=== PATIENT | male | born 1985 | race Caucasian/White ===

== ENCOUNTER 2018-06-03 09:26 | Emergency (ER) | payer OTHER ==
[2018-06-03 10:07] VITALS: BP 123/70
--- NOTE | 2018-06-03 10:12 | UC ---
UC General HPI - HPI Summary HPI Summary: cough with chest congestion x 1 month. + chills. no cp or sob. smokes 1ppd. had a sore throat that has resolved. - History of Current Complaint Chief Complaint: UCRespiratory Stated Complaint: CHILLS,CONGESTION Time Seen by Provider: 06/03/18 10:06 Hx Obtained From: Patient Onset/Duration: Gradual Onset Timing: Constant Pain Intensity: 0 Aggravating: nothing Alleviating: nothing Associated Signs & Symptoms: Positive: Cough, Fever - ?. Negative: Chest Pain, Hematemesis, SOB, Wheezing - Allergy/Home Medications Allergies/Adverse Reactions: Allergies Allergy/AdvReac Type Severity Reaction Status Date / Time bee sting Allergy Swelling Uncoded 06/03/18 10:07 PMH/Surg Hx/FS Hx/Imm Hx Previously Healthy: Yes - Surgical History Surgical History: Yes Surgery Procedure, Year, and Place: right inquinal hernia at age 18 yr - Family History Known Family History: Positive: Other - asthma - Social History Lives: With Family Alcohol Use: Occasionally Substance Use Type: Excessive Caffeine Smoking Status (MU): Heavy Every Day Tobacco Smoker - Immunization History Vaccination Up to Date: Yes Review of Systems Constitutional: Negative Skin: Negative Eyes: Negative ENT: Negative Respiratory: Cough Cardiovascular: Negative Gastrointestinal: Negative Genitourinary: Negative Motor: Negative Neurovascular: Negative Musculoskeletal: Negative Neurological: Negative Psychological: Negative Is Patient Immunocompromised?: No All Other Systems Reviewed And Are Negative: Yes Physical Exam Triage Information Reviewed: Yes Appearance: Well-Appearing Vital Signs: Initial Vital Signs Temp 98.3 F 06/03/18 09:57 Pulse 55 06/03/18 09:57 Resp 20 06/03/18 09:57 BP 123/70 06/03/18 09:57 Pulse Ox 100 06/03/18 09:57 Vital Signs Reviewed: Yes Eyes: Positive: Conjunctiva Clear ENT: Positive: Pharynx normal, TMs normal. Negative: Nasal congestion, Nasal drainage Neck: Positive: Supple, Nontender, No Lymphadenopathy Respiratory: Positive: Lungs clear, No respiratory distress, Decreased breath sounds Cardiovascular: Positive: RRR, No Murmur Abdomen Description: Positive: Nontender, No Organomegaly, Soft Bowel Sounds: Positive: Present Musculoskeletal: Positive: ROM Intact Neurological: Positive: Alert Psychological: Positive: Age Appropriate Behavior Skin Exam: Normal Diagnostics - Laboratory Diagnostic Studies Completed/Ordered: CXR=NO ACTIVE CARDIOPULMONARY DISEASE. Course/Dx - Course Course Of Treatment: non toxic, cxr=unremarkable. non resolving cough x 1 month and smokes 1ppd thus infection and RAD both of concern thus will tx for presumptive bacterial infection and RAD. need for close f/u advised. - Differential Dx - Multi-Symptom Provider Diagnoses: Cough. Possibe reactive airways disease. Discharge - Sign-Out/Discharge Documenting (check all that apply): Patient Departure All imaging exams completed and their final reports reviewed: Yes - Discharge Plan Condition: Stable Disposition: HOME Prescriptions: Albuterol HFA INHALER* [Ventolin HFA Inhaler*] 2 puff INH Q6H #1 mdi DOXYcycline CAP(*) [DOXYcycline 100MG CAP(*)] 100 mg PO BID #14 cap Patient Education Materials: Acute Cough (ED), Bronchospasm (ED) Referrals: Bren Feliciano MD [Primary Care Provider] - 7 Days - Billing Disposition and Condition Condition: STABLE Disposition: Home
--- NOTE | 2018-06-03 10:25 | RAD ---
HISTORY: cough x 1 month COMPARISONS: None VIEWS: 4: Frontal dual-energy and lateral views of the chest. FINDINGS: CARDIOMEDIASTINAL SILHOUETTE: The cardiomediastinal silhouette is normal. OLIVA: The oliva are normal. PLEURA: The costophrenic angles are sharp. No pleural abnormalities are noted. LUNG PARENCHYMA: The lungs are clear. ABDOMEN: The upper abdomen is clear. There is no subphrenic gas. BONES AND SOFT TISSUES: No bone or soft tissue abnormalities are noted. OTHER: None. IMPRESSION: NO ACTIVE CARDIOPULMONARY DISEASE.
== END 2018-06-03 10:50 | disposition home or self-care (01) ==
LOC: UCCORT 09:26
DX: R05 Cough (principal); F17.210 Nicotine dependence, cigarettes, uncomplicated
CPT/HCPCS: 71046; 99202; G0463

== ENCOUNTER 2019-10-19 09:53 | Emergency (ER) | payer OTHER ==
[2019-10-19 10:15] VITALS: BP 108/63
--- NOTE | 2019-10-19 13:43 | UC ---
Abdominal Pain Male HPI - HPI Summary HPI Summary: mid abdominal pain x 4 days pain is dull, 4 out 10 worse with doing situps , better with rest, feeling a bulge mid abdominal wall, no n/v/d/c , no fever, no urinary sx - History of Current Complaint Chief Complaint: UCAbdominalPain Stated Complaint: STOMACHE PAIN Time Seen by Provider: 10/19/19 10:17 Hx Obtained From: Patient Onset/Duration: Gradual Onset, Lasting Days - 4, Still Present Timing: Constant Severity Initially: Moderate Severity Currently: Moderate Pain Intensity: 3 Pain Scale Used: 0-10 Numeric Location: Other - mid abd Radiates: No Character: Dull Aggravating Factor(s): Movement Alleviating Factor(s): Rest Associated Signs And Symptoms: Negative: Fever, Chest Pain, Back Pain, Constipation, Blood in Stool, Urinary Symptoms, Decreased Appetite, Nausea, Vomiting, Diarrhea - Allergies/Home Medications Allergies/Adverse Reactions: Allergies Allergy/AdvReac Type Severity Reaction Status Date / Time bee sting Allergy Swelling Uncoded 10/19/19 10:15 Home Medications: Home Medications NK [No Home Medications Reported] 10/19/19 [History Confirmed 10/19/19] PMH/Surg Hx/FS Hx/Imm Hx Previously Healthy: Yes - Surgical History Surgical History: Yes Surgery Procedure, Year, and Place: right inquinal hernia at age 18 yr - Family History Known Family History: Positive: Other - asthma, Non-Contributory - Social History Alcohol Use: Occasionally Substance Use Type: None Smoking Status (MU): Heavy Every Day Tobacco Smoker - Immunization History Vaccination Up to Date: Yes Review of Systems All Other Systems Reviewed And Are Negative: Yes Constitutional: Positive: Negative Skin: Positive: Negative Eyes: Positive: Negative Is Patient Immunocompromised?: No Physical Exam Triage Information Reviewed: Yes Appearance: Well-Appearing, No Pain Distress, Well-Nourished Vital Signs: Initial Vital Signs Temp 98.1 F 10/19/19 10:11 Pulse 59 10/19/19 10:11 Resp 14 10/19/19 10:11 BP 108/63 10/19/19 10:11 Pulse Ox 98 10/19/19 10:11 Vital Signs Reviewed: Yes Eye Exam: Normal Eyes: Positive: Conjunctiva Clear ENT: Positive: Normal ENT inspection, Hearing grossly normal, Pharynx normal Neck: Positive: Supple, Nontender, No Lymphadenopathy Respiratory: Positive: Chest non-tender, Lungs clear, Normal breath sounds Cardiovascular: Positive: RRR, No Murmur, Pulses Normal Abdomen Description: Positive: Soft, Hernia @ - ventral. Negative: CVA Tenderness (R), CVA Tenderness (L), Distended, Guarding Bowel Sounds: Positive: Present Musculoskeletal Exam: Normal Skin Exam: Normal Abd Pain Male Course/Dx - Differential Dx/Clinical Impression Provider Diagnosis: Hernia, ventral Discharge ED - Sign-Out/Discharge Documenting (check all that apply): Patient Departure All imaging exams completed and their final reports reviewed: No Studies - Discharge Plan Condition: Stable Disposition: HOME Patient Education Materials: Ventral Hernia (ED) Referrals: Miguelito Hall MD [Medical Doctor] - As Soon As Possible No Primary Care Phys,NOPCP [Primary Care Provider] - - Billing Disposition and Condition Condition: STABLE Disposition: Home
== END 2019-10-19 10:38 | disposition home or self-care (01) ==
LOC: UCCORT 09:53
DX: K43.9 Ventral hernia without obstruction or gangrene (principal); F17.290 Nicotine dependence, other tobacco product, uncomplicated; Z91.030 Bee allergy status
CPT/HCPCS: 99211; G0463

== ENCOUNTER 2019-11-15 09:35 | Day surgery (SDC) | payer OTHER ==
[~2019-11-15 09:35] MED LIST: Buffered Lidocaine 1% SYRIN* 1 ML/SYRINGE INTRADERM ONE; Lactated Ringers 1000 ML Bag* 1,000 ML IV SCH
[2019-11-15] MEDS ORDERED: ceFAZolin 2 GM in NS PREMIX(*) 2 GM/100 ML BAG IVPB ONE (10:11)
[2019-11-15] MEDS ORDERED: fentaNYL* 50 MCG/ML 2 ML VIAL (100 MCG VIAL) ONE (10:38)
[2019-11-15] MEDS ORDERED: Rocuronium* 10 MG/ML VIAL ONE (10:38)
[2019-11-15] MEDS ORDERED: Lidocaine 2% PF * 5 ML VIAL ONE (10:38)
[2019-11-15] MEDS ORDERED: Propofol* 10 MG/ML 20 ML BTL ONE (10:38)
[2019-11-15] MEDS ORDERED: Midazolam* 1 MG/ML 2 ML VIAL (2 MG) ONE (10:38)
[2019-11-15] MEDS ORDERED: Sugammadex * 200 MG/2 ML VIAL IV PUSH ONE ×2 (11:08→13:07)
[2019-11-15] MEDS ORDERED: Bupivacaine 0.25% SDV PF* 10 ML VIAL INJ ONE ×2 (11:34→12:37)
[2019-11-15] MEDS ORDERED: Dexamethasone IV* 4 MG/ML 1 ML (4 MG) ONE (12:38)
[2019-11-15] MEDS ORDERED: Ketorolac INJ* 30 MG/ML 1 ML VIAL ONE (12:38)
[2019-11-15] MEDS ORDERED: Ondansetron INJ* 2 MG/ML VIAL ONE (12:38)
[2019-11-15] MEDS ORDERED: Metoclopramide IV* 5 MG/ML 2 ML VIAL ONE (12:38)
[2019-11-15] MEDS ORDERED: fentaNYL* 50 MCG/ML 2 ML VIAL (100 MCG VIAL) IV PRN (12:45)
[2019-11-15] MEDS ORDERED: oxyCODONE TAB* 5 MG TAB PO PRN (12:45)
[2019-11-15] MEDS ORDERED: Acetaminophen TAB* 325 MG PO PRN (12:45)
[2019-11-15] MEDS ORDERED: Naloxone* 0.4 MG/ML 1 ML VIAL IV PRN (12:45)
[2019-11-15] MEDS ORDERED: DiMENhydriNATE IV* 50 MG/ML VIAL IV PUSH PRN (12:45)
--- NOTE | 2019-11-15 13:28 | BRIEFOPN ---
Brief Operative/Procedure Note - Operation Details Pre-Op Diagnosis: ventral hernia Post-Op Diagnosis: same Procedures: robotic repair ventral hernia with mesh Surgeon(s)/Proceduralists: Rafael. Assist: SANYA Flowers Anesthesia: GET. Fluids: 800 ml RL Estimated Blood Loss: none Findings: as above Specimen(s)/Culture(s) Description: none Complications: none
[2019-11-15 13:54] VITALS: BP 109/61
--- NOTE | 2019-11-16 00:05 | OP ---
DATE OF OPERATION: 11/15/19 - [facility] DATE OF : 89 SURGEON: Miguelito Hall MD PRESS ROOM SUPERVISOR: SANYA Ma PRE-OP DIAGNOSIS: Ventral hernia. POST-OP DIAGNOSIS: Ventral hernia. OPERATIVE PROCEDURE: Robotic repair of ventral hernia with mesh. INDICATIONS FOR PROCEDURE: Ventral hernia, symptomatic. Risks included, but not limited to bleeding, infection, recurrence of the hernia were explained to the patient, who seemed to understand and agreed to the procedure and all questions were answered. DESCRIPTION OF PROCEDURE: The patient was taken to the operating room and placed supine. Preoperative antibiotics were given. After the successful induction of general endotracheal anesthesia, the abdomen was prepped and draped in sterile fashion. A left-sided 5-mm trocar was placed under direct visualization of the camera using a bladeless Optiview trocar. Pneumoperitoneum was achieved to 15 mmHg. A camera was placed in the abdomen. The abdomen was scanned. There was no obvious injury from trocar placement. An 8-mm trocar was placed in the lower midline and in the left lower quadrant and the 5-mm trocar was replaced with an 8- mm trocar. The robot was brought in and docked. The peritoneum was taken down exposing a small ventral hernia between the umbilicus and xiphoid. This was closed with 0 PDS suture and a small Ventralex patch was then sutured up against this defect closure and sutured to the fascia using the 0 PDS suture around the outer edge of the mesh. The peritoneum was then closed using a running 3-0 V-Loc suture completely covering the mesh. The abdomen was scanned. No obvious injury was noted. The sutures were removed. Pneumoperitoneum was released from the abdomen. The trocars were removed. The skin was closed with Monocryl and glue. The patient tolerated the procedure well. He was extubated and taken to Recovery in stable condition. [id number]/[facility] #: [id number] [facility] CAMPUSSubhash
== END 2019-11-15 14:43 | disposition home or self-care (01) ==
LOC: OR 09:35
PROVIDERS: ATTEND Surgery
DX: K43.9 Ventral hernia without obstruction or gangrene (principal); F17.210 Nicotine dependence, cigarettes, uncomplicated; M54.5 Low back pain
CPT/HCPCS: 49652; S2900; C1781; J0690; J1100; J1885; J2250; J2405; J2704; J2765; J3010; J3490

== ENCOUNTER 2019-12-27 08:05 | Emergency (ER) | payer OTHER ==
--- OUTSIDE RECORDS SUMMARY | 2019-12-27 08:12 | XMS REPORT | Continuity of Care Document ---
:1985 External Reference #:[id number] Author Name Dinora Morgan NP (transmitted by agent of provider Everton Viera) Address [address] [place] [address] Care Team Providers Name Role Phone Andres Tavares MD - Family Care Team Information [employer] [phone] Medicine Problems Description No Information Available Social History Type Date Description Comments Sex Unknown Tobacco Use Start: Unknown Heavy tobacco smoker (more than 10 cigarettes/day) Smoking Status Reviewed: 10/22/19 Heavy tobacco smoker (more than 10 cigarettes/day) Allergies, Adverse Reactions, Alerts Description No Known Drug Allergies Medications Description No Active Medications Immunizations Description No Information Available Vital Signs Date Vital Result Comment 11/23/2019 9:23am Heart Rate 68 /min BP Systolic 132 mmHg BP Diastolic 82 mmHg Body Temperature 98.6 F 10/22/2019 9:02am Height 70 inches 5'10" Weight 185.00 lb BP Systolic Sitting 126 mmHg BP Diastolic Sitting 78 mmHg Respiratory Rate 16 /min Body Temperature 99.8 F Pain Level 0 O2 % BldC Oximetry 96 % BMI (Body Mass Index) 26.5 kg/m2 Results Description No Information Available Procedures Date Code Description Status 11/15/2019 03719 Laps Repair Hernia Except Incal/Ingun Reducible Completed Medical Devices Description No Information Available Encounters Type Date Location Provider Dx Diagnosis Office Visit 10/22/2019 Surgical Miguelito German K43.9 Ventral hernia 9:00a [facility] MD without obstruction AT [place] or gangrene Assessments Date Code Description Provider 11/23/2019 K43.9 Ventral hernia without obstruction or Dinora Morgan NP gangrene 11/23/2019 Z48.01 Encounter for change or removal of Dinora Morgan NP surgical wound dressing 11/15/2019 K43.9 Ventral hernia without obstruction or Miguelito Hall MD gangrene 10/25/2019 K43.9 Ventral hernia without obstruction or Miguelito Hall MD gangrene 10/22/2019 K43.9 Ventral hernia without obstruction or Miguelito Hall MD gangrene Plan of Treatment 11/23/2019 - Dinora Morgan [id number] Ventral hernia without obstruction or gangreneFollow up:As [id number] Encounter for change or removal of surgical wound dressing Functional Status Description No Information Available Mental Status Description No Information Available Referrals Description No Information Available
--- OUTSIDE RECORDS SUMMARY | 2019-12-27 08:12 | XMS REPORT | Continuity of Care Document ---
:1985 External Reference #:[id number] Author Name Dinora Morgan NP (transmitted by agent of provider Juliana Saeed) Address [address] [place] [address] Care Team Providers Name Role Phone Andres Tavares MD - Family Care Team Information Job Recruiter [phone] Medicine Problems Description No Information Available Social [...] Available Procedures Date Code Description Status 11/15/2019 61609 Laps Repair Hernia Except Incal/Ingun Reducible Completed Medical Devices Description No Information Available Encounters Type Date Location Provider Dx Diagnosis Office Visit 10/22/2019 Surgical Miguelito German K43.9 Ventral hernia 9:00a [facility] MD without obstruction AT [place] or gangrene Assessments Date Code Description Provider [...] Ventral hernia without obstruction or gangreneFollow up:As [id number] Encounter for change or removal of surgical wound dressing Functional Status Description No Information Available Mental Status Description No Information Available Referrals Description No Information Available
[2019-12-27 08:35] VITALS: BP 113/73
[2019-12-27 08:46] LABS: Influenza A Molecular Negative (Negative); Influenza B Molecular Negative (Negative)
[2019-12-27] MEDS ORDERED: Albuterol HFA INHALER* 8 gm MDI INH ONE (08:52)
--- NOTE | 2019-12-27 08:56 | UC ---
Respiratory Complaint HPI - HPI Summary HPI Summary: 34 yo make with a 2-3 day hx of episodic cough and shortness of breath. No fever or chills No chest pain no diarrhea no know COVID19 exposure works outside as health information director - History of Current Complaint Chief Complaint: UCRespiratory Stated Complaint: SHORTNESS OF BREATH Time Seen by Provider: 12/27/19 08:22 Hx Obtained From: Patient Onset/Duration: Gradual Onset, Lasting Minutes - 20-30 Severity Initially: Mild Severity Currently: None Pain Intensity: 0 Pain Scale Used: 0-10 Numeric Character: Cough: Nonproductive Aggravating Factors: Nothing Alleviating Factors: Spontaneous Resolution, Other - fresh air and smoking a cigarette Associated Signs And Symptoms: Positive: Dyspnea - Allergies/Home Medications Allergies/Adverse Reactions: Allergies Allergy/AdvReac Type Severity Reaction Status Date / Time bee sting Allergy Swelling Uncoded 12/27/19 08:16 Home Medications: Home Medications NK [No Home Medications Reported] 12/27/19 [History Confirmed 12/27/19] PMH/Surg Hx/FS Hx/Imm Hx Previously Healthy: Yes - Surgical History Surgical History: Yes Surgery Procedure, Year, and Place: Right Inquinal Hernia Repair at age 18 yr. hernia surgery 11/15/19 - Family History Known Family History: Positive: Hypertension, Diabetes, Other - asthma - Social History Alcohol Use: Occasionally Substance Use Type: Marijuana Substance Use Comment - Amount & Last Used: Frequently- last used yesterday Smoking Status (MU): Heavy Every Day Tobacco Smoker Type: Cigarettes Amount Used/How Often: 1 PPD for 10 years Have You Smoked in the Last Year: Yes Cessation Counseling: Patient Advised to Stop - Immunization History Vaccination Up to Date: Yes Review of Systems All Other Systems Reviewed And Are Negative: Yes Constitutional: Positive: Negative Skin: Positive: Negative Eyes: Positive: Negative ENT: Positive: Negative Respiratory: Positive: Shortness Of Breath, Cough Cardiovascular: Positive: Negative Gastrointestinal: Positive: Negative Genitourinary: Positive: Negative Motor: Positive: Negative Neurovascular: Positive: Negative Musculoskeletal: Positive: Negative Neurological/Mental Status: Positive: Negative Psychological: Positive: Negative Physical Exam Triage Information Reviewed: Yes Appearance: Well-Appearing, No Pain Distress, Well-Nourished Vital Signs: Initial Vital Signs Temp 98.4 F 12/27/19 08:34 Pulse 52 12/27/19 08:34 Resp 18 12/27/19 08:34 BP 113/73 12/27/19 08:34 Pulse Ox 100 12/27/19 08:34 Vital Signs Reviewed: Yes Eyes: Positive: Conjunctiva Clear ENT: Positive: Hearing grossly normal, Pharynx normal, TMs normal, Uvula midline. Negative: Nasal congestion, Nasal drainage, Tonsillar swelling, Tonsillar exudate, Trismus, Muffled voice, Hoarse voice, Sinus tenderness Dental Exam: Normal Neck: Positive: Supple, Nontender, No Lymphadenopathy Respiratory: Positive: No respiratory distress, No accessory muscle use, Wheezing - with forced expiration, Other: - bronchspastic cough with forced expiration Cardiovascular: Positive: RRR. Negative: Tachycardia, Bradycardia Musculoskeletal: Positive: No Edema Neurological: Positive: Alert Psychological Exam: Normal Skin Exam: Normal Diagnostics - Laboratory Lab Results: influenza NEGATIVE Respiratory Course/Dx - Differential Dx/Diagnosis Provider Diagnosis: Bronchospasm, Smoker, Advice given about COVID-19 virus infection Discharge ED - Sign-Out/Discharge Documenting (check all that apply): Patient Departure All imaging exams completed and their final reports reviewed: No Studies - Discharge Plan Condition: Stable Disposition: HOME Patient Education Materials: Bronchospasm (ED), How to Use a Metered-Dose Inhaler and a Spacer (ED) Forms: COVID-19 Tested & Isolation Referrals: No Primary Care Phys,NOPCP [Primary Care Provider] - Additional Instructions: COVID19 testing pending Influenza test NEGATIVE you need to decrease or stop smoking recheck for new or worsening symptoms - Billing Disposition and Condition Condition: STABLE Disposition: Home
== END 2019-12-27 09:15 | disposition home or self-care (01) ==
LOC: UCCORT 08:05
DX: J98.01 Acute bronchospasm (principal); Z20.828 Contact with and (suspected) exposure to other viral communicable diseases; Z91.030 Bee allergy status; F17.210 Nicotine dependence, cigarettes, uncomplicated
CPT/HCPCS: 87635; 99212; A9270-GY; G0463